=== PATIENT | female | born 1950 | race Caucasian/White ===

== ENCOUNTER 2016-09-26 00:03 | Emergency (ER) | payer BC ==
[~2016-09-26] VITALS: Ht 152.4 cm; Wt 73.8 kg
[2016-09-26] MEDS ORDERED: PROVENTIL HFA6.7 GM IH (02:46)
[2016-09-26] MEDS ORDERED: PERCOCET 5/31 TABLET PO (02:46)
[2016-09-26 02:59] VITALS: BP 122/95
== END 2016-09-26 03:01 | disposition home or self-care (01) ==
LOC: EXP 00:03 → EME 00:03 → EXP 03:01
DX: S22.31XA Fracture of one rib, right side, initial encounter for closed fracture (principal); E11.9 Type 2 diabetes mellitus without complications; E78.5 Hyperlipidemia, unspecified; I10 Essential (primary) hypertension; W19.XXXA Unspecified fall, initial encounter; Z85.3 Personal history of malignant neoplasm of breast; Z88.1 Allergy status to other antibiotic agents; Z88.2 Allergy status to sulfonamides; Z87.891 Personal history of nicotine dependence
CPT/HCPCS: 71020; 71250; 74176; 99281; 99284